=== PATIENT | female | born 1955 | race Caucasian/White ===

== ENCOUNTER → 2023-01-05 09:03 | Outpatient (CLI) | payer MEDICARE, SELFPAY | PROVIDERS: PCP Family Medicine; Visit Provider Physician Assistant Medical | DX: M79.671 Pain in right foot (principal); G89.29 Other chronic pain | CPT/HCPCS: 73630 ==

== ENCOUNTER → 2023-01-21 08:53 | Outpatient (CLI) | payer MEDICARE, SELFPAY ==
--- NOTE | ~2023-01-21 | MR_ITS ---
MRI of the right foot CLINICAL HISTORY: Pain TECHNIQUE: Sagittal T1-weighted and STIR images, axial proton-density and proton-density fat-sat imag es, and coronal T1-weighted and proton-density fat-sat images were performed. FINDINGS: There is no suspicious marrow edema. No fracture or evidence for osteomyelitis. There are m ild to moderate degenerative changes the tarsal metatarsal joints, especially the third, fourth, and fifth articulations. There is moderate degenerative change at the calcaneocuboid articulation. There is mild degenerative change at the first metatarsophalangeal joint, with small joint effusion. There is nonspecific marrow edema in the medial hallux sesamoid. Flexor and extensor tendons are intact. No evidence for intermetatarsal bursitis or Conrad's neuroma. No soft tissue mass or fluid collection evident. Plantar fascia intact. Intrinsic musculature of the foot is unremarkable. 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 Minimal degenerative change at the first MTP joint, with small joint effusion. Nonspecific marrow edema in the medial hallux sesamoid. This could be reactive/stress response. Reviewed, dictated and finalized at [facility]. IMPRESSION: Moderate degenerative changes of the calcaneocuboid joint and third, fourth, an d fifth tarsometatarsal articulations. Minimal degenerative change at the first MTP joint, with small joint effusion. Nonspecific marrow edema in the medial hallux sesamoid. This could be reactive/ stress response.
== END ==
PROVIDERS: PCP Family Medicine; Visit Provider Nurse Practitioner Family
DX: M25.474 Effusion, right foot (principal); M19.071 Primary osteoarthritis, right ankle and foot; R60.9 Edema, unspecified
CPT/HCPCS: 73718